=== PATIENT | male | born 2000 | race African-American/Black ===

== ENCOUNTER 2018-08-01 09:57 | Emergency (ER) | payer OTHER ==
[~2018-08-01] VITALS: Ht 172.7 cm; Wt 67.1 kg
[2018-08-01 10:05] VITALS: BP 120/72
[2018-08-01 10:37] LABS: MONOTEST NEGATIVE (NEGATIVE)
== END 2018-08-01 10:46 | disposition home or self-care (01) ==
LOC: ER 09:59
DX: J02.9 Acute pharyngitis, unspecified (principal)
CPT/HCPCS: 36415; 86308-TC